=== PATIENT | female | born 1940 | race Caucasian/White ===

== ENCOUNTER → 2017-02-16 | Outpatient (CLI) | payer MEDICARE, OTHER ==
[~2017-02-16] MED LIST: ALENDRONATE SOD70 MG PO; CALCIUM 600 +1 EA14; CALCIUM 600 +1 EAC3 PO; CLARITIN10 M2 PO; CLINORIL200 M1 PO; FLAGYL PO; LEVAQUIN PO; LISINOPRIL-HCTZ1 T15 PO; LOPRESSOR PO; OMEPRAZOLE20 M2 PO; OMEPRAZOLE40 M1 PO; PHENERGAN25 M1 PO; PHENERGAN25 M1 PR; SIMVASTATIN40 MG PO; TIZANIDINE HCL4 M1 PO; VITAMIN B650 M2 PO; VITAMIN B650 MG; VITAMIN C500 M1 PO; VITAMIN E400 UNI2 PO; VITAMIN E400 UNI5 PO
--- NOTE | ~2017-02-16 | MY30 ---
[facility] A Service of [facility] RADIOLOGY TEXT RESULTS PATIENT: KAYLEN PETERSON LOCATION: [facility] : 42 UNIT #: [id number] AGE: [address]: FRANKIE BEJARANO DO SEX: F ORDER DR: [id number] [address] [address] [id number] O MR#: [id number] Acc #: [id number] NAME: KAYLEN PETERSON : 1940 SEX: F STUDY DATE/TIME: 02/16/2017 11:04 UNIT: [facility] ROOM: STUDY DESCRIPTION: MY SCREEN TASHIA BILAT DIGITAL Attending Physician: Frankie Bejarano D.O. Referring Physician: Frankie Bejarano D.O. Ordering Physician: Frankie Bejarano D.O. Primary Care Physician: Letha Coleman A.P.R.N. MEDICAL IMAGING REPORT This report is preliminary unless electronic signature is present. EXAM Bilateral digital screening mammogram with CAD, 02/16/2017 HISTORY 76-year-old female with family history of breast cancer in a maternal first cousin. No personal history breast cancer or current complaints. COMPARISON Bilateral screening mammogram 02/15/2016, 02/08/2015, 02/02/2014. FINDINGS CC and MLO views were obtained of each breast utilizing digital technique and reviewed with an FDA-approved CAD device. Heterogeneously dense fibroglandular tissue is demonstrated within the anterior two-thirds of each breast. The parenchymal pattern appears stable. No new or developing nodule is identified. Benign appearing intramammary lymph node in the lateral hemisphere right breast on the CC view, unchanged. IMPRESSION Benign findings. Routine bilateral screening mammogram is recommended in one year. Patients over the age of 40 are entered into a reminder system with target due date for the next mammogram. A result letter will also be sent to the patient. BIRADS: 2 Benign Finding Dictated by... Karina Baker M.D. [facility] A Service of [facility] RADIOLOGY TEXT RESULTS PATIENT: KAYLEN PETERSON LOCATION: [facility] : 42 UNIT #: [id number] AGE: [address]: FRANKIE BEJARANO DO SEX: F ORDER DR: THIS IS AN ELECTRONICALLY VERIFIED REPORT Karina Baker M.D. at 02/22/2017 8:36 AM [place] TD: 02/16/2017 16:10 JOB #: [id number] MEDICAL IMAGING REPORT Page 1 of 1
== END | disposition home or self-care (01) ==
LOC: SMAM 10:08
DX: Z12.31 Encounter for screening mammogram for malignant neoplasm of breast (principal); Z80.3 Family history of malignant neoplasm of breast
CPT/HCPCS: G0202